=== PATIENT | female | born 1960 | race Caucasian/White ===

== ENCOUNTER → 2019-07-26 | Outpatient (CLI) | payer OTHER, SELFPAY ==
[2019-08-21 15:23] LABS: HPV Reflexed? NOT INDICATED
== END | disposition home or self-care (01) ==
LOC: LABSPEC 12:47
PROVIDERS: Referring Provider Obstetrics & Gynecology; Visit Provider Obstetrics & Gynecology
DX: Z12.4 Encounter for screening for malignant neoplasm of cervix (principal)
CPT/HCPCS: 87624; 88175; G0145

== ENCOUNTER → 2019-10-04 09:13 | Outpatient (CLI) | payer OTHER, SELFPAY ==
--- NOTE | 2019-10-04 09:29 | RAD_ITS ---
STUDY: X-RAY - LEFT HAND REASON FOR EXAM: Pain and swelling of the dorsal hand at the level of the second through fifth knuckles, fall last night. TECHNIQUE: 3 view(s) of the hand. COMPARISON: None. FINDINGS: Normal radiocarpal articulation. Normal distal radioulnar joint. Normal visualized carpal bones. Normal carpal articulations Normal carpometacarpal articulation of the thumb. Normal second through fifth carpometacarpal joints. Normal metacarpi. Normal metacarpophalangeal joint of the thumb. There is moderate joint space narrowing of the interphalangeal joint of the thumb. Normal proximal and distal phalanges of the thumb. Normal metacarpophalangeal joints of the second through fifth fingers. Normal proximal and distal interphalangeal joints of the second through fifth fingers. Normal phalanges of the second through fifth fingers. There is a bone island in the third distal phalanx. There is soft tissue swelling over the dorsal aspect of the metacarpophalangeal joints. There is a small ossicle adjacent to the ulnar styloid process and a small soft tissue calcification palmar to the proximal carpal row. 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 Soft tissue swelling. No demonstrated fracture. Electronically Signed: Fidel Blas MD at 10:22 EST Tel , Service support ,
== END ==
PROVIDERS: Referring Provider Physician Assistant; Visit Provider Physician Assistant
DX: S69.92XA Unspecified injury of left wrist, hand and finger(s), initial encounter (principal)
CPT/HCPCS: 73130

== ENCOUNTER → 2019-10-16 17:07 | Outpatient (CLI) | payer OTHER, SELFPAY ==
[2019-10-16 16:37] VITALS: BMI 26.5
--- NOTE | 2019-10-16 17:10 | RAD_ITS ---
STUDY: X-RAY - LEFT HAND REASON FOR EXAM: Female, 58 years old. Pain after a fall TECHNIQUE: 3 view(s) of the hand. COMPARISON: 10/04/2019 FINDINGS: Normal radiocarpal articulation. Normal distal radioulnar joint. Normal visualized carpal bones. Normal carpal articulations Normal carpometacarpal articulation of the thumb. Normal second through fifth carpometacarpal joints. Normal metacarpi. Normal metacarpophalangeal joint of the thumb. There is degenerative arthrosis of the interphalangeal joint of the thumb with articular joint space narrowing. Normal proximal and distal phalanges of the thumb. Normal metacarpophalangeal joints of the second through fifth fingers. Normal proximal and distal interphalangeal joints of the second through fifth fingers. Normal phalanges of the second through fifth fingers. The soft tissue structures are unremarkable. RAD/Hand Min 3 Views IMPRESSION: No demonstrated fracture or suspicious osseous lesion. 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
== END ==
PROVIDERS: Referring Provider Physician Assistant; Visit Provider Physician Assistant
DX: S60.222A Contusion of left hand, initial encounter (principal); S63.92XA Sprain of unspecified part of left wrist and hand, initial encounter
CPT/HCPCS: 73130

== ENCOUNTER 2021-12-22 09:00 | Outpatient (CLI) | payer OTHER, SELFPAY ==
--- NOTE | 2021-12-22 09:02 | BI_ITS ---
MAMMOGRAPHY - UNILATERAL DIAGNOSTIC: LEFT BREAST REASON FOR EXAM: Female, 61 years old. History of left breast cyst. PERTINENT HISTORY: Non-contributory. TECHNIQUE: Digital unilateral breast benita (3D mammographic acquisition) in the CC and MLO projections. 2-D mediolateral oblique (MLO) and craniocaudad (CC) views of both breasts were obtained. CAD: Full Field Digital Mammography with Computer Added Detection was performed. COMPARISON: Comparison is made with prior outside examination dated 03/25/2021. FINDINGS: Breast Composition: The breasts are heterogeneously dense, which may obscure small masses. There are no dominant masses or suspicious calcifications. The previously seen 7.1 mm nodular density in the upper lateral aspect of the left breast is not seen at this time. No other significant abnormalities are identified. BI/DIAG MAMM W/CAD, UNILAT IMPRESSION: The previously seen nodular density in the upper-outer quadrant of the left breast is not seen at this time. One year follow-up mammogram recommended. (A) ASSESSMENT CATEGORY: BIRADS Category 2: Benign. A letter regarding these results will be sent to the patient by the facility within 30 days. Approximately 10% of breast cancers are not detected by mammography. A normal mammogram should not delay biopsy of a clinically suspicious abnormality. Electronically Signed: Ko Meneses MD at 11:24 EST ,
== END 2021-12-22 23:59 | disposition home or self-care (01) ==
LOC: OPBI 09:01
PROVIDERS: Visit Provider Surgery
DX: R92.8 Other abnormal and inconclusive findings on diagnostic imaging of breast (principal)
CPT/HCPCS: 77061; 77065; G0279

== ENCOUNTER 2022-01-06 11:30 | Outpatient (CLI) | payer OTHER, SELFPAY ==
[2022-01-11 13:38] LABS: HPV Reflexed? YES, CHARGE PATIENT
== END 2022-01-06 23:59 | disposition home or self-care (01) ==
LOC: LABSPEC 01-07 08:51
PROVIDERS: Visit Provider Obstetrics & Gynecology
DX: Z12.4 Encounter for screening for malignant neoplasm of cervix (principal)
CPT/HCPCS: 87624; 88175; G0145